=== PATIENT | female | born 1980 | race Caucasian/White ===

== ENCOUNTER 2016-08-23 23:11 | Emergency (ER) | payer SELFPAY ==
[~2016-08-23] VITALS: Ht 167.6 cm; Wt 64.5 kg
[2016-08-23 23:22] VITALS: Ht 167.6 cm; Wt 64.5 kg
== END 2016-08-24 02:15 | disposition left against medical advice (07) ==
LOC: FTE 23:11
DX: Z53.21 Procedure and treatment not carried out due to patient leaving prior to being seen by health care provider (principal)